=== PATIENT | female | born 1980 | race Caucasian/White ===

== ENCOUNTER 2017-04-17 13:27 | Emergency (ER) | payer SELFPAY ==
--- NOTE | ~2017-04-17 | ER ---
PATIENT'S NAME: SMOOTH BEE [facility] AGE: 36 Y [address] ROOM: [place] [address] LOCATION: [facility] ADMIT DATE: 04/17/2017 ER/Outpatient Report DISCHARGE DATE: FAMILY PHYSICIAN: PHYSICIAN, NO ATTENDING PHYSICIAN: Stanton Kurtz Time of Patient's Arrival: 1327 hours. Time of Patient's Evaluation: 1345 hours. CHIEF COMPLAINT: Possible insect bite on face. HISTORY OF PRESENT ILLNESS: This is a 36-year-old female who presents to the ER, who states that she woke up 2 days ago with what appeared to be a bug bite to her chin. She states that she has never had anything like this before. She states that it has become swollen and has been draining pus out of it. She states she has not been running any fevers. She denies any dental pain. She states she has not taken any ibuprofen today for her discomfort. She states she has not seen her primary care physician in [place] for this. ALLERGIES: NO KNOWN ALLERGIES. MEDICATIONS: Ibuprofen. PAST SURGERIES: Cholecystectomy and hernia repair. SOCIAL HISTORY: She does smoke cigarettes and drinks alcohol occasionally. REVIEW OF SYSTEMS: All systems are reviewed and are negative with the exception of those discussed in the HPI. PHYSICAL EXAMINATION: VITAL SIGNS: Weight 93 kg taken, blood pressure 133/74, pulse 98, respirations 24, temperature 97.6 degrees tympanically, and saturations 98% on room air. Anabel Coma Score is 15. GENERAL: Alert, calm, well-developed female, in mild distress. HEENT: Head: Normocephalic. Eyes: Pupils are equal and reactive to light. Ears: TMs display good light reflexes bilaterally. Throat: No exudates or erythema. She does display moist mucous membranes. PATIENT'S NAME: SMOOTH BEE [facility] AGE: 36 Y [address] ROOM: [place] [address] LOCATION: ED ADMIT DATE: 04/17/2017 ER/Outpatient Report DISCHARGE DATE: FAMILY PHYSICIAN: PHYSICIAN, NO ATTENDING PHYSICIAN: Stanton Kurtz LUNGS: Clear to auscultation bilaterally. HEART: Regular rate and rhythm. EXTREMITIES: No clubbing or cyanosis. She has full range of motion of all limbs. SKIN: She has an open sore to her chin. She does have some erythema approximately the size of a ping pong ball onto her chin. There is no active drainage at the site at this time. LABORATORY DATA AND X-RAYS: None were done. IMPRESSION: Staphylococcus infection to her chin. ASSESSMENT AND PLAN: We did give the patient 2 Emporium here in the emergency room for her discomfort as well as Bactrim p.o. here as well. We will dismiss her to home with prescriptions for Bactrim and Emporium to use as directed. She may alternate some pain medication as needed with ibuprofen. She needs to allow the area continue to drain. She needs to apply warm compresses to the skin. She needs to have a close followup with her primary care physician in 1-2 days for followup care. The patient understands and agrees with care. ABDI BHATTI PA-C FOR [facility]/leatha /[id number] d: 04/17/17 1903 t: 05/04/17 1223, OUTPATIENT REPORT
== END 2017-04-17 14:10 | disposition disaster alternative care site (69) ==
LOC: GMED 13:27
DX: L98.9 Disorder of the skin and subcutaneous tissue, unspecified (principal); B95.8 Unspecified staphylococcus as the cause of diseases classified elsewhere; F17.210 Nicotine dependence, cigarettes, uncomplicated; Z90.49 Acquired absence of other specified parts of digestive tract; Z79.1 Long term (current) use of non-steroidal anti-inflammatories (NSAID); Z98.890 Other specified postprocedural states